=== PATIENT | female | born 1950 | race Caucasian/White ===

== ENCOUNTER 2017-02-06 11:33 | Emergency (ER) | payer MEDICARE ==
[~2017-02-06] VITALS: Ht 165.1 cm; Wt 65.9 kg
[2017-02-06] MEDS ORDERED: LEVO50 PO (11:43)
[2017-02-06 13:21] VITALS: BP 139/84
== END 2017-02-06 13:43 | disposition home or self-care (01) ==
LOC: EMS 11:44
DX: S20.212A Contusion of left front wall of thorax, initial encounter (principal); I10 Essential (primary) hypertension; E78.00 Pure hypercholesterolemia, unspecified; E03.9 Hypothyroidism, unspecified; V49.50XA Passenger injured in collision with unspecified motor vehicles in traffic accident, initial encounter; Y93.89 Activity, other specified; Y92.89 Other specified places as the place of occurrence of the external cause; Y99.8 Other external cause status
CPT/HCPCS: 99283